=== PATIENT | female | born 1960 | race Caucasian/White ===

== ENCOUNTER 2017-11-10 18:55 | Outpatient (REF) | payer BC, SELFPAY ==
[2017-11-10 21:17] LABS: Anion Gap 8.4 mmol/L (3-11); BUN 17 mg/dL (7-18); CO2 30.6 mmol/L (21.0-32.0); CREATININE 1.23 mg/dL (0.55-1.02); Calcium 8.9 mg/dL (8.5-10.1); Chloride 103 mmol/L (98-107); Estimated GFR 45.17 (mL/min/1.73m2); Glucose 86 mg/dL (70-100); LDL CHOLESTEROL 119 mg/dL (<100); Potassium 4.3 mmol/L (3.5-5.1); Sodium 142 mmol/L (136-145); TSH 2.55 uIU/mL (0.358-3.74)
== END 2017-11-10 18:56 ==
LOC: NCHCN 18:55
PROVIDERS: PCP Physician Assistant; Visit Provider Internal Medicine
DX: I10 Essential (primary) hypertension (principal); E66.9 Obesity, unspecified
CPT/HCPCS: 80048; 83721; 84443

== ENCOUNTER 2017-11-26 07:24 | Day surgery (SDC) | payer BC, SELFPAY ==
--- NOTE | 2017-11-25 21:08 | PHPE_ITS ---
DATE OF DICTATION: November 25, 2017 DATE OF SURGERY: November 26, 2017 IMPRESSION: Symptomatic right plantar fibroma. PLAN: Damari is being brought to the Operating Room for surgical excision of the soft tissue mass. The risks and complications of surgery have been discussed including the potential for pain, scarring, i nfection, wound dehiscence, plantar fibroma recurrence, and neurologic injury based on the location i n the medial plantar nerve being directly under this fibroma. In spite of these warnings, she would like to proceed with surgical intervention. Informed consent has been obtained. SURGEON: Adal Odonnell D.P.M. CHIEF COMPLAINT: Nie[age]-old female with longstanding, progressively painful fibroma of the right foot. This has been present for over four years, is interfering with shoe gear and ambulation, and she wants it removed. CURRENT MEDICATIONS: Hydrochlorothiazide/losartan 12.5 mg/50 mg daily. ALLERGIES: There are no known drug allergies. PAST MEDICAL HISTORY: 1. Fibroma. 2. Obesity. 3. Eczema. 4. Hypertension. 5. Cervical radiculitis. 6. Renal calculi. PREVIOUS SURGERIES: 1. Cervical spine surgery. 2. Cholecystectomy. 3. Parathyroid adenoma surgery. PHYSICAL EXAMINATION: VITAL SIGNS: BP 156/87. Pulse 85. BMI 34.9. GENERAL: The patient looks well. HEENT: Eyes PERRLA. Hearing is adequate. Uvula is midline. Airway looks accessible. LUNGS: Lung guthrie are clear. HEART: Regular rate and rhythm. ABDOMEN: Soft, nontender, bowel sounds appreciated. EXTREMITIES: Peripheral pulses are palpable at the ankles 2/4. CFT under 3 seconds. Without edema. Skin is grossly intact. Neurologically toes are downgoing, no deficits appreciated. Musculoskelet al exam reveals a firm mass measuring 1.7 x 2.2 cm situated within the medial slip of the plantar fas sammy mid-arch region. It is nonpulsatile. It is tender to direct palpation. Overlying skin is freel y mobile.
[2017-11-26 07:39] VITALS: BP 146/98; PULSE 80; RESP 16; TEMP 37.1; O2SAT 99
[2017-11-26] MEDS: Lactated Ringers 1,000 ML 80 ML IV (08:01)
[2017-11-26] MEDS: Lactated Ringers 1,000 ML 400 ML IV (09:40)
[2017-11-26] MEDS: Bupivacaine 0.5% Pres-Free 30 ML VIAL (09:44)
[2017-11-26] MEDS: Lidocaine 1% Pres-Free 5 ML VIAL 10 ML (09:59)
--- NOTE | 2017-11-26 10:10 | SOFT_PTH ---
PATIENT: NERI AMADOR LOC: [facility] U#:[id number] AGE/SX: 57/F ROOM: RE11/26/[address]: Adal Odonnell : 1960 BED: DIS: 11/26/2017 SPEC #: [id number] RECD: 11/26/17 12:39 STATUS: JENN REQ #: [id number] CYNTHIA: 11/26/17 10:[address]: Adal Odonnell DEPT: Surgical Specimen RECD BY: Destiney eBst ENTERED: 11/26/17 12:41 SP TYPE: SOFT OTHR DR: Ralph Woodward Tissues: 1 - [facility] Procedures: GROSS AND MICRO LEVEL 4 Comments: [id number]
[2017-11-26] MEDS: Dexamethasone 4 MG/ML VIAL (10:18)
[2017-11-26 10:31] VITALS: BP 132/73; PULSE 73; RESP 16; TEMP 36.4; O2SAT 99
[2017-11-26 11:03] VITALS: BP 129/78; PULSE 78; RESP 16; TEMP 36.6; O2SAT 99
--- NOTE | 2017-11-26 14:29 | ROE_ITS ---
DATE OF PROCEDURE: November 26, 2017 PREOPERATIVE DIAGNOSIS: Soft tissue mass plantar aspect of right foot, consistent with plantar fibro ma. POSTOPERATIVE DIAGNOSIS: Same. PROCEDURE: Excision plantar fibroma right foot. SURGEON: Mark FrederickPMartha. ANESTHESIA: Monitored Anesthesia Care with local block of the right foot utilizing 20 cc's 50/50 mix ture 1% Lidocaine plain and 0.5% Marcaine plain. ANESTHESIA PROVIDER: Stef Hale CRNA OPERATIVE INDICATIONS: 57-year-old female with long-standing, slowly enlarging plantar mass, now int erfering with shoe gear, weightbearing, daily activities. She is opting for surgical excision. Risk s and complications have been discussed including the potential for pain, scarring, infection, neurol ogic injury of the medial plantar nerve, recurrence. All questions have been answered. Informed con sent has been obtained. REPORT OF OPERATION: Damari is brought to the operative suite and placed in the supine position where t he right foot is prepped and draped in the usual sterile podiatric fashion. A time-out was performed . Attention was now directed to the right foot, which was exsanguinated and a well-padded ankle tourniq uet inflated 250 mmHg. A Lazy-S incision was placed, centered over the soft tissue masses. The inci len was deepened in controlled depth fashion. The plantar fascia was immediately visualized. Disse ction was performed. I went up to the distal aspect of the plantar fascia, made a small transverse i ncision and lifted the plantar fascia free of the underlying muscular structures. Soft tissue dissec tion with curved Metzenbaum's was then performed. The medial edge of the fibroma was identified. I went in approximately 4 mm and went medially to that to get a clean margin and stripped it back autumn macias. I did the same thing distal laterally and brought that back proximally as well, lifting the p lantar fascia up from the underlying structures as I went. She actually had two fibroma masses; the more proximal was the larger of the two, with a smaller distal lesion also identified. The fascia th at was lifted up and stripped away encompassed both of these masses. At the proximal edge it was onc e again transversely incised so as to remove the portion of the plantar fascia from the surgical woun d. This was sent off to Pathology. Finger palpation revealed nice smooth edges along the plantar fa scia; no additional findings of fibroma. Copious irrigation was performed. The deep structures were repaired with simple interrupted suture #3-0 Vicryl. The skin was then coapted with horizontal caryn ress suture #4-0 nylon. 5 mg of Dexamethasone phosphate was infused deeply into the wound. Xeroform , gauze fluff compression dressings applied. The tourniquet was released at twenty-five minutes with vascularity returning immediately to all toes. A posterior splint was applied. Damari left the OR wit h vital signs stable, vascular status intact. She will remain non-weightbearing on the right lower e xtremity. I will follow her up on Wednesday. Please note - sponge and sharp counts were correct. cc: Ralph Woodward M.D.
== END 2017-11-26 11:26 | disposition home or self-care (01) ==
PROVIDERS: PCP Internal Medicine; Visit Provider Podiatrist
DX: M72.2 Plantar fascial fibromatosis (principal); I10 Essential (primary) hypertension
CPT/HCPCS: 11421; 12041; 88305; 88304; J0690; J1100; J1885; J2250

== ENCOUNTER 2018-11-16 19:03 | Outpatient (REF) | payer BC, SELFPAY ==
[2018-11-16 20:48] LABS: Anion Gap 12.9 mmol/L (3-11); BUN 19 mg/dL (7-18); CO2 25.1 mmol/L (21.0-32.0); CREATININE 0.96 mg/dL (0.55-1.02); Calcium 8.7 mg/dL (8.5-10.1); Chloride 103 mmol/L (98-107); Estimated GFR 59.91 (mL/min/1.73m2); Glucose 95 mg/dL (70-100); Potassium 4.1 mmol/L (3.5-5.1); Sodium 141 mmol/L (136-145)
== END 2018-11-16 19:23 ==
LOC: NCHCN 19:03
PROVIDERS: PCP Internal Medicine; Visit Provider Internal Medicine
DX: Z00.00 Encounter for general adult medical examination without abnormal findings (principal); Z13.228 Encounter for screening for other metabolic disorders
CPT/HCPCS: 80048